=== PATIENT | female | born 1965 | race African-American/Black ===

== ENCOUNTER 2020-05-21 08:28 | Outpatient (CLI) | payer OTHER ==
--- NOTE | 2020-05-21 09:06 | RAD ---
Exam: Chest one view HISTORY:Hypertension Comparison: 11/19/2008 FINDINGS: Cardiac silhouette: Normal Aorta: Unremarkable Pulmonary vessels: Normal Costophrenic angles: Clear LUNGS: No masses or consolidation. Pneumothorax: None Osseous abnormalities: None IMPRESSION: No acute cardiopulmonary process.
--- NOTE | 2020-05-21 09:09 | MMO ---
Bilateral MAMMO Bilat Screen [facility]. CLINICAL HISTORY: Patient is 54 years old and is seen for screening. The patient has no family history of breast cancer. The patient has no personal history of cancer. VIEWS: The views performed were: bilateral craniocaudal with tomosynthesis and bilateral mediolateral oblique with tomosynthesis. This study has been interpreted with the assistance of computer-aided detection. MAMMOGRAM FINDINGS: There are scattered fibroglandular densities. There are intramammary lymph nodes seen in both breasts. There are no suspicious masses, suspicious calcifications, or areas of architectural distortion. IMPRESSION: THERE IS NO MAMMOGRAPHIC EVIDENCE OF MALIGNANCY. A ROUTINE FOLLOW-UP MAMMOGRAM IN 1 YEAR IS RECOMMENDED. THE RESULTS OF THIS EXAM WERE SENT TO THE PATIENT. ACR BI-RADS Category 2 - Benign finding MAMMOGRAPHY NOTE: 1. A negative mammogram report should not delay a biopsy if a dominant of clinically suspicious mass is present. 2. Approximately 10% to 15% of breast cancers are not detected by mammography. 3. Adenosis and dense breasts may obscure an underlying neoplasm. Reported by: GARY ROUSE MD Electonically Signed: [id number]
--- NOTE | 2020-05-21 09:32 | BD ---
DEXA SCAN: Date: 05/21/2020 INDICATION: Osteoporosis screening. COMPARISON: None. FINDINGS/IMPRESSION: Lumbar Spine: BMD (g/cm2) L1 1.335 T-Score: 3.1 Z-Score: 4.1 L2 1.340 T-Score: 2.8 Z-Score: 3.9 L3 1.365 T-Score: 2.6 Z-Score: 3.7 L4 1.355 T-Score: 2.7 Z-Score: 3.9 L1-L4 1.349 T-Score: 2.7 Z-Score: 3.9 Left Femoral Neck: 1.217 T-Score: 3.3 Z-Score: 4.4 Left Total Hip: 1.405 T-Score: 3.8 Z-Score: 4.5 Based on WHO criteria, the patient's bone mineral density is normal. The patient is at low risk for fracture. POS: BH
--- NOTE | 2020-05-21 09:39 | RAD ---
3 VIEWS PARANASAL SINUSES: Date: 05/21/2020 INDICATION: History of tension-type headache. COMPARISON: None. FINDINGS: Paranasal sinuses are clear. No air fluid level is evident. No acute fracture is evident. IMPRESSION: No acute abnormality. POS: BH
== END 2020-05-21 08:29 | disposition home or self-care (01) ==
LOC: BICMAMMO 08:28
PROVIDERS: ATTEND Family Medicine
DX: Z12.31 Encounter for screening mammogram for malignant neoplasm of breast (principal); Z13.820 Encounter for screening for osteoporosis; I10 Essential (primary) hypertension; G44.209 Tension-type headache, unspecified, not intractable
CPT/HCPCS: 70220; 71045; 77063; 77067; 77080

== ENCOUNTER 2021-11-12 04:24 | Emergency (ER) | payer OTHER ==
[2021-11-12] MEDS ORDERED: Acetaminophen 500 MG TAB ONE (05:23)
[2021-11-12] MEDS ORDERED: Ondansetron ODT 4 MG TAB ONE (05:23)
== END 2021-11-12 06:13 | disposition home or self-care (01) ==
LOC: ERS 04:24
DX: U07.1 COVID-19 (principal)
CPT/HCPCS: 99284; Q0162

== ENCOUNTER 2021-11-16 20:53 | Emergency (ER) | payer OTHER ==
[2021-11-16 21:52] LABS: #Lymphocytes 2.2 thou/uL (1.20-3.40); #Monocytes 0.5 thou/uL (0.11-0.59); #Neutrophils 3.6 thou/uL (1.40-6.50); %Basophils 0.5 % (0.0-1.0); %Eosinophils 0.4 % (0.0-10.0); %Lymphocytes 34.7 % (21.0-51.0); %Monocytes 8.1 % (0.0-10.0); %Neutrophils 56.3 % (42.0-75.0); Hemoglobin 13.1 g/dL (12.0-16.0); Mean Corpuscular HGB CONC 35.5 g/dL (32.0-36.0); Mean Corpuscular Hemoglobin 30.3 pg (27.0-31.0); Mean Corpuscular Volume 85.5 fL (78.0-98.0); Mean Platelet Volume 7.7 fL (7.4-10.4); Platelet Count 363 thou/uL (130-400); RBC Distribution Width 10.9 % (11.5-14.5); White Blood Cell (WBC) Count 6.3 thou/uL (4.8-10.8)
[2021-11-16 22:10] LABS: ALT (SGPT) 31 U/L (8-55); AST (SGOT) 31 U/L (5-34); Albumin 4.2 g/dL (3.5-5.0); Alkaline Phosphatase 57 U/L (40-110); Anion Gap 16 mmol/L (10-20); BUN (Urea Nitrogen) 9 mg/dL (9.8-20.1); Calc. Creatinine Clearance 0 mL/min (70-130); Calcium 9.6 mg/dL (7.8-10.44); Carbon Dioxide 21 mmol/L (22-29); Chloride 102 mmol/L (98-107); Globulin 3.1 g/dL (2.4-3.5); Glucose 119 mg/dL (70-105); Potassium 3.3 mmol/L (3.5-5.1); Protein, Total 7.3 g/dL (6.0-8.3); Sodium 136 mmol/L (136-145)
[2021-11-17 00:08] LABS: Magnesium 1.8 mg/dL (1.6-2.6)
== END 2021-11-17 00:43 | disposition home or self-care (01) ==
LOC: ERS 20:53
DX: F41.9 Anxiety disorder, unspecified (principal); Z79.82 Long term (current) use of aspirin; Z79.899 Other long term (current) drug therapy
CPT/HCPCS: 36415; 71045; 80053; 83735; 84484; 85025; 85379; 93005

== ENCOUNTER 2021-12-21 10:47 | Emergency (ER) | payer OTHER | END 2021-12-21 13:09 | disposition home or self-care (01) | LOC: ERS 10:47 | DX: M25.461 Effusion, right knee (principal); M25.561 Pain in right knee; R60.0 Localized edema; I10 Essential (primary) hypertension; Z79.899 Other long term (current) drug therapy; Z79.82 Long term (current) use of aspirin ==

== ENCOUNTER 2022-01-23 20:50 | Emergency (ER) | payer OTHER ==
[2022-01-23 22:05] LABS: #Basophils 0.1 thou/uL (0.0-0.2); #Eosinphils 0.1 thou/uL (0.0-0.7); #Monocytes 0.6 thou/uL (0.11-0.59); #Neutrophils 7.5 thou/uL (1.40-6.50); %Basophils 0.7 % (0.0-1.0); %Eosinophils 0.8 % (0.0-10.0); %Lymphocytes 19.9 % (21.0-51.0); %Monocytes 5.6 % (0.0-10.0); Hemoglobin 13.7 g/dL (12.0-16.0); Mean Corpuscular HGB CONC 34.1 g/dL (32.0-36.0); Platelet Count 277 thou/uL (130-400); RBC Distribution Width 11.5 % (11.5-14.5); Red Blood Cell (RBC) Count 4.55 mill/uL (4.20-5.40); White Blood Cell (WBC) Count 10.3 thou/uL (4.8-10.8)
[2022-01-23 22:25] LABS: ALT (SGPT) 24 U/L (8-55); AST (SGOT) 26 U/L (5-34); Albumin 4.6 g/dL (3.5-5.0); Alkaline Phosphatase 84 U/L (40-110); Anion Gap 16 mmol/L (10-20); BUN (Urea Nitrogen) 12 mg/dL (9.8-20.1); Bilirubin, Total 0.6 mg/dL (0.2-1.2); Calc. Creatinine Clearance 0 mL/min (70-130); Calcium 9.7 mg/dL (7.8-10.44); Carbon Dioxide 27 mmol/L (22-29); Chloride 100 mmol/L (98-107); Globulin 3.6 g/dL (2.4-3.5); Glucose 138 mg/dL (70-105); Lipase 36 U/L (8-78); Potassium 3.8 mmol/L (3.5-5.1); Protein, Total 8.2 g/dL (6.0-8.3); Sodium 139 mmol/L (136-145)
[2022-01-23] MEDS ORDERED: Lidocaine Viscous Sol 2% 15 ml UD Cup ONE (23:08)
[2022-01-23] MEDS ORDERED: Nitroglycerin 2% Ointment 1 INCH/1 GM Packet ONE (23:08)
[2022-01-23] MEDS ORDERED: Mag-Al 1200 mg/1200 mg/30 ML UDCUP ONE (23:08)
[2022-01-23] MEDS ORDERED: Aspirin Chewable 81 MG TAB ONE (23:08)
[2022-01-24] LABS: Troponin I Less than 0.010 ng/mL (< 0.028)
== END 2022-01-24 00:31 | disposition home or self-care (01) ==
LOC: ERS 20:50
DX: R07.89 Other chest pain (principal); I10 Essential (primary) hypertension
CPT/HCPCS: 36415; 71045; 80053; 83690; 84484; 85025; 93005; 94760

== ENCOUNTER 2022-01-26 18:51 | Inpatient (IN) | payer OTHER ==
[2022-01-26 20:19] LABS: #Eosinphils 0.1 thou/uL (0.0-0.7); #Lymphocytes 1.5 thou/uL (1.20-3.40); #Monocytes 0.3 thou/uL (0.11-0.59); #Neutrophils 3.7 thou/uL (1.40-6.50); %Basophils 0.9 % (0.0-1.0); %Eosinophils 1.2 % (0.0-10.0); %Lymphocytes 26.6 % (21.0-51.0); %Monocytes 6.1 % (0.0-10.0); %Neutrophils 65.3 % (42.0-75.0); Hemoglobin 13.5 g/dL (12.0-16.0); Mean Corpuscular HGB CONC 34.6 g/dL (32.0-36.0); Mean Corpuscular Hemoglobin 30.8 pg (27.0-31.0); Platelet Count 303 thou/uL (130-400); RBC Distribution Width 11.7 % (11.5-14.5); Red Blood Cell (RBC) Count 4.37 mill/uL (4.20-5.40); White Blood Cell (WBC) Count 5.6 thou/uL (4.8-10.8)
[2022-01-26 20:39] LABS: ALT (SGPT) 23 U/L (8-55); AST (SGOT) 25 U/L (5-34); Albumin 4.5 g/dL (3.5-5.0); Alkaline Phosphatase 88 U/L (40-110); Anion Gap 15 mmol/L (10-20); BUN (Urea Nitrogen) 11 mg/dL (9.8-20.1); Bilirubin, Total 0.7 mg/dL (0.2-1.2); Calc. Creatinine Clearance 0 mL/min (70-130); Calcium 9.8 mg/dL (7.8-10.44); Carbon Dioxide 25 mmol/L (22-29); Chloride 105 mmol/L (98-107); Globulin 3.8 g/dL (2.4-3.5); Glucose 112 mg/dL (70-105); Protein, Total 8.3 g/dL (6.0-8.3); Sodium 141 mmol/L (136-145)
[2022-01-26 21:17] LABS: INR-International Normal Ratio 0.9; Prothrombin Time 11.7 sec (12.0-14.7)
[2022-01-26] MEDS ORDERED: Acetaminophen 500 MG TAB ONE (21:49)
[2022-01-26] MEDS ORDERED: Aspirin Chewable 81 MG TAB ONE (21:49)
[2022-01-26] MEDS ORDERED: Senokot S 8.6-50 MG TAB PO PRN (22:33)
[2022-01-26] MEDS ORDERED: HYDROcodone/Acetaminophen 5/325 mg Tablet PO PRN (22:33)
[2022-01-26] MEDS ORDERED: Acetaminophen 325 MG TAB PO PRN (22:33)
[2022-01-26] MEDS ORDERED: HYDROcodone/Acetaminophen 7.5/325 mg Tablet PO PRN (22:33)
[2022-01-26] MEDS ORDERED: Ondansetron PF 4 MG/2 ML Vial IVP PRN (22:33)
[2022-01-26] MEDS ORDERED: Melatonin 3 MG TAB PO PRN (22:38)
[2022-01-26 23:56] LABS: Troponin I Less than 0.010 ng/mL (< 0.028)
[2022-01-26] MEDS ORDERED: Atorvastatin Calcium 40 MG TAB PO SCH (23:59)
[2022-01-27 00:35] VITALS: BMI 28.8
[2022-01-27 02:41] LABS: Troponin I Less than 0.010 ng/mL (< 0.028)
[2022-01-27] MEDS ORDERED: hydrALAZINE 20 MG/ML VIAL SLOW IVP PRN (03:05)
[2022-01-27] MEDS ORDERED: Pantoprazole 40 MG VIAL IVP SCH ×2 (05:00→21:00)
[2022-01-27 05:02] LABS: #Eosinphils 0.1 thou/uL (0.0-0.7); #Lymphocytes 3.4 thou/uL (1.20-3.40); #Monocytes 0.6 thou/uL (0.11-0.59); %Basophils 0.5 % (0.0-1.0); %Eosinophils 1.4 % (0.0-10.0); %Monocytes 7.2 % (0.0-10.0); Mean Corpuscular HGB CONC 34.3 g/dL (32.0-36.0); Mean Corpuscular Hemoglobin 30.7 pg (27.0-31.0); Mean Corpuscular Volume 89.3 fL (78.0-98.0); Mean Platelet Volume 8.4 fL (7.4-10.4); Platelet Count 290 thou/uL (130-400); RBC Distribution Width 11.6 % (11.5-14.5); Red Blood Cell (RBC) Count 4.57 mill/uL (4.20-5.40); White Blood Cell (WBC) Count 8.2 thou/uL (4.8-10.8)
[2022-01-27 05:11] LABS: Hemoglobin A1c 5.8 % (4.0-6.0)
[2022-01-27 05:19] LABS: ALT (SGPT) 25 U/L (8-55); AST (SGOT) 24 U/L (5-34); Albumin 4.5 g/dL (3.5-5.0); Alkaline Phosphatase 77 U/L (40-110); Anion Gap 14 mmol/L (10-20); BUN (Urea Nitrogen) 11 mg/dL (9.8-20.1); Calc. Creatinine Clearance 81 mL/min (70-130); Calcium 9.5 mg/dL (7.8-10.44); Carbon Dioxide 23 mmol/L (22-29); Cardiac Risk 4.7 (Less than 4.5); Chloride 103 mmol/L (98-107); Cholesterol 256 mg/dl (< 200 Desired); Globulin 3.3 g/dL (2.4-3.5); Glucose 120 mg/dL (70-105); HDL Cholesterol 54 mg/dL (>60 Neg Risk); LDL Cholesterol, Calculated 157 mg/dL; Potassium 3.4 mmol/L (3.5-5.1); Protein, Total 7.8 g/dL (6.0-8.3); Sodium 137 mmol/L (136-145); Triglycerides 226 mg/dL (Less than 150)
[2022-01-27] MEDS ORDERED: Lorazepam 2 MG/ML VIAL SLOW IVP SCH (07:21)
[2022-01-27] MEDS: cloNIDine 0.1 MG TAB PO SCH ×2 (08:00→19:50)
[2022-01-27] MEDS: Aspirin Chewable 81 MG TAB PO SCH (08:00)
[2022-01-27] MEDS: Atenolol 50 MG TAB PO SCH (08:00)
[2022-01-27] MEDS: Triamterene/Hydrochlorothiazide 37.5 mg/25 mg Tablet PO SCH (08:01)
[2022-01-27] MEDS: Enoxaparin Sodium 40 MG/0.4 ML SYRINGE SC SCH (08:03)
[2022-01-27 09:28] LABS: INR-International Normal Ratio 0.9; PTT 27.6 sec (22.9-36.1); Prothrombin Time 12.4 sec (12.0-14.7)
[2022-01-27 09:29] LABS: D-Dimer Test 0.29 *mcg/mL (0.27-0.43)
[2022-01-27 11:56] LABS: SARS-CoV-2 PCR by NAA Not Detected (NotDetected)
[2022-01-27] MEDS: Labetalol HCl 100 MG/20 ML VIAL SLOW IVP PRN ×2 (15:18→19:51)
[2022-01-27] MEDS ORDERED: Atorvastatin Calcium 40 MG TAB PO SCH (21:00)
[2022-01-28 07:08] VITALS: TEMP 98
[2022-01-28] MEDS ORDERED: Pantoprazole 40 MG VIAL IVP SCH (09:00)
[2022-01-28] MEDS: Triamterene/Hydrochlorothiazide 37.5 mg/25 mg Tablet PO SCH (09:51)
[2022-01-28] MEDS: cloNIDine 0.1 MG TAB PO SCH (09:51)
[2022-01-28] MEDS: Aspirin Chewable 81 MG TAB PO SCH (09:51)
[2022-01-28] MEDS: Atenolol 50 MG TAB PO SCH (09:51)
[2022-01-28] MEDS: Enoxaparin Sodium 40 MG/0.4 ML SYRINGE SC SCH (09:51)
[2022-01-28 11:52] VITALS: BP 169/73
[2022-01-31 13:24] LABS: Protein C Activity 174 % (78-152)
[2022-01-31 13:25] LABS: Factor VIII Test 223.3 % ACTIVE (56-157)
[2022-01-31 13:26] LABS: HEX PHOS LA Tube 1 38.1 SEC; HEX PHOS LA Tube 2 38.3 SEC
[2022-02-04 15:25] LABS: ANA Symphony (Qualitative) Negative (Negative); ANA Symphony (Quantitative) 0.2 Ratio (< 0.7 Negative); Cardiolipin IgA Ab 3.1 APL-U/mL (<14 Negative); Cardiolipin IgG Ab 0.5 GPL-U/mL (<10 Negative); Cardiolipin IgM Ab Less than 0.8 MPL-U/mL (<10 Negative); EliA APS New Method **** NEW METHOD ****; Rheumatoid Factor IgA Antibody 3.2 IU/mL (<14 Negative); Rheumatoid Factor IgM Antibody 1.1 IU/mL (<3.5 Negative); dsDNA IgG Antibody 1.7 IU/mL (<10 Negative)
[2022-02-13 17:38] LABS: Activated Protein C Resistance 2.8 ratio (.)
== END 2022-01-28 12:50 | disposition home or self-care (01) | DRG 305 ==
LOC: ERS 18:51 → 2SW 22:23 → OBSVTOIN 01-27 10:00
PROVIDERS: ADMIT Internal Medicine; ATTEND Internal Medicine
DX: I16.0 Hypertensive urgency (principal); Z20.822 Contact with and (suspected) exposure to COVID-19; E78.5 Hyperlipidemia, unspecified; I10 Essential (primary) hypertension; M25.461 Effusion, right knee; Z91.14 Patient's other noncompliance with medication regimen; Q75.8 Other specified congenital malformations of skull and face bones; Z79.899 Other long term (current) drug therapy; Z79.82 Long term (current) use of aspirin; Z90.710 Acquired absence of both cervix and uterus; Z83.2 Family history of diseases of the blood and blood-forming organs and certain disorders involving the immune mechanism
CPT/HCPCS: 36415; 70496; 70498; 70544; 70551; 71045; 80053; 80061; 83036; 83090; 83520; 84443; 84484; 85025; 85240; 85300; 85303; 85305; 85307; 85379; 85598; 85610; 85730; 86038; 86147; 86200; 86225; 93005; 96374; 96375; C9113; G0378; J0360; J2405; U0003; U0005

== ENCOUNTER 2022-02-04 03:53 | Inpatient (IN) | payer OTHER ==
[2022-02-04] MEDS ORDERED: Nitrazine Tape 1 ROLL ONE ×2 (04:14→04:16)
[2022-02-04] MEDS ORDERED: Nitroglycerin 2% Ointment 1 INCH/1 GM Packet ONE (04:14)
[2022-02-04] MEDS ORDERED: Aspirin Chewable 81 MG TAB ONE (04:15)
[2022-02-04 04:24] LABS: #Lymphocytes 1.9 thou/uL (1.20-3.40); #Monocytes 0.5 thou/uL (0.11-0.59); #Neutrophils 4.9 thou/uL (1.40-6.50); %Basophils 0.5 % (0.0-1.0); %Eosinophils 0.5 % (0.0-10.0); %Lymphocytes 25.3 % (21.0-51.0); %Monocytes 6.3 % (0.0-10.0); %Neutrophils 67.3 % (42.0-75.0); Mean Corpuscular HGB CONC 35.2 g/dL (32.0-36.0); Mean Corpuscular Hemoglobin 30.8 pg (27.0-31.0); Mean Corpuscular Volume 87.4 fL (78.0-98.0); Mean Platelet Volume 7.8 fL (7.4-10.4); Platelet Count 325 thou/uL (130-400); RBC Distribution Width 11.3 % (11.5-14.5); Red Blood Cell (RBC) Count 4.55 mill/uL (4.20-5.40); White Blood Cell (WBC) Count 7.3 thou/uL (4.8-10.8)
[2022-02-04 04:43] LABS: ALT (SGPT) 27 U/L (8-55); AST (SGOT) 30 U/L (5-34); Albumin 4.9 g/dL (3.5-5.0); Alkaline Phosphatase 104 U/L (40-110); Anion Gap 18 mmol/L (10-20); BUN (Urea Nitrogen) 15 mg/dL (9.8-20.1); Bilirubin, Total 1.3 mg/dL (0.2-1.2); CK (CPK) 253 U/L (29-168); Calc. Creatinine Clearance 0 mL/min (70-130); Calcium 9.9 mg/dL (7.8-10.44); Carbon Dioxide 26 mmol/L (22-29); Chloride 97 mmol/L (98-107); Globulin 3.4 g/dL (2.4-3.5); Glucose 116 mg/dL (70-105); Lipase 45 U/L (8-78); Potassium 3.1 mmol/L (3.5-5.1); Protein, Total 8.3 g/dL (6.0-8.3); Sodium 138 mmol/L (136-145)
[2022-02-04] MEDS ORDERED: Enoxaparin Sodium 80 MG/0.8 ML SYRINGE ONE (05:45)
[2022-02-04] MEDS ORDERED: Ondansetron PF 4 MG/2 ML Vial IVP PRN (06:41)
[2022-02-04] MEDS ORDERED: Ondansetron ODT 4 MG TAB PO PRN (06:41)
[2022-02-04 07:13] VITALS: BMI 27.6
[2022-02-04] MEDS ORDERED: Potassium Chloride 20 MEQ TAB PO SCH (07:45)
[2022-02-04] MEDS ORDERED: Acetaminophen 650 MG Suppository PR PRN (07:58)
[2022-02-04] MEDS ORDERED: Acetaminophen 325 MG TAB PO PRN (07:58)
[2022-02-04] MEDS ORDERED: Nitroglycerin 0.4 MG TAB (25 Tab Bottle) SL PRN (08:00)
[2022-02-04] MEDS ORDERED: hydrALAZINE 20 MG/ML VIAL SLOW IVP PRN (08:01)
[2022-02-04] MEDS: Aspirin Chewable 81 MG TAB PO SCH (08:24)
[2022-02-04] MEDS: Triamterene/Hydrochlorothiazide 37.5 mg/25 mg Tablet PO SCH (08:25)
[2022-02-04] MEDS: cloNIDine 0.1 MG TAB PO SCH ×2 (08:25→20:07)
[2022-02-04] MEDS ORDERED: Aspirin 325 MG TAB PO SCH (09:00)
[2022-02-04] MEDS ORDERED: ADENOSINE 60 MG/20 ML VIAL ONE (10:08)
[2022-02-04 11:51] LABS: Troponin I Less than 0.010 ng/mL (< 0.028)
[2022-02-04] MEDS ORDERED: Amlodipine 5 MG TAB PO SCH (16:30)
[2022-02-04 17:25] LABS: SARS-CoV-2 PCR by NAA Not Detected (NotDetected)
[2022-02-04] MEDS: Atorvastatin Calcium 40 MG TAB PO SCH (20:07)
[2022-02-05 05:34] LABS: Anion Gap 16 mmol/L (10-20); BUN (Urea Nitrogen) 9 mg/dL (9.8-20.1); Calc. Creatinine Clearance 80 mL/min (70-130); Calcium 9.8 mg/dL (7.8-10.44); Carbon Dioxide 23 mmol/L (22-29); Chloride 105 mmol/L (98-107); Glucose 99 mg/dL (70-105); Potassium 3.6 mmol/L (3.5-5.1); Sodium 140 mmol/L (136-145)
[2022-02-05 05:41] LABS: #Basophils 0.1 thou/uL (0.0-0.2); #Lymphocytes 1.8 thou/uL (1.20-3.40); #Monocytes 0.3 thou/uL (0.11-0.59); #Neutrophils 3.1 thou/uL (1.40-6.50); %Basophils 1.7 % (0.0-1.0); %Eosinophils 0.7 % (0.0-10.0); %Lymphocytes 33.6 % (21.0-51.0); %Monocytes 5.1 % (0.0-10.0); %Neutrophils 58.9 % (42.0-75.0); Hemoglobin 14.4 g/dL (12.0-16.0); Mean Corpuscular HGB CONC 33.9 g/dL (32.0-36.0); Mean Corpuscular Hemoglobin 29.9 pg (27.0-31.0); Mean Corpuscular Volume 88.3 fL (78.0-98.0); Mean Platelet Volume 7.7 fL (7.4-10.4); Platelet Count 296 thou/uL (130-400); RBC Distribution Width 11.5 % (11.5-14.5); Red Blood Cell (RBC) Count 4.81 mill/uL (4.20-5.40); White Blood Cell (WBC) Count 5.2 thou/uL (4.8-10.8)
[2022-02-05 07:55] LABS: Cardiac Risk 3.5 (Less than 4.5)
[2022-02-05] MEDS: NIFEdipine XL 30 MG TAB PO SCH (08:07)
[2022-02-05] MEDS: Triamterene/Hydrochlorothiazide 37.5 mg/25 mg Tablet PO SCH (08:08)
[2022-02-05] MEDS: Aspirin Chewable 81 MG TAB PO SCH (08:08)
[2022-02-05] MEDS: cloNIDine 0.1 MG TAB PO SCH ×2 (08:08→21:03)
[2022-02-05] MEDS: Atenolol 50 MG TAB PO SCH (08:12)
[2022-02-05] MEDS ORDERED: Communication Order-Pharmacy FS SCH (14:45)
[2022-02-05] MEDS: Atorvastatin Calcium 40 MG TAB PO SCH (21:03)
[2022-02-06 04:55] LABS: #Eosinphils 0.1 thou/uL (0.0-0.7); #Lymphocytes 2.9 thou/uL (1.20-3.40); #Monocytes 0.5 thou/uL (0.11-0.59); #Neutrophils 4.5 thou/uL (1.40-6.50); %Basophils 0.2 % (0.0-1.0); %Eosinophils 0.9 % (0.0-10.0); %Lymphocytes 36.1 % (21.0-51.0); %Monocytes 6.7 % (0.0-10.0); %Neutrophils 56.2 % (42.0-75.0); Hemoglobin 14.7 g/dL (12.0-16.0); Mean Corpuscular HGB CONC 35.4 g/dL (32.0-36.0); Mean Corpuscular Hemoglobin 31.7 pg (27.0-31.0); Mean Corpuscular Volume 89.3 fL (78.0-98.0); Mean Platelet Volume 7.6 fL (7.4-10.4); Platelet Count 287 thou/uL (130-400); RBC Distribution Width 11.4 % (11.5-14.5); Red Blood Cell (RBC) Count 4.64 mill/uL (4.20-5.40)
[2022-02-06 05:21] LABS: BUN (Urea Nitrogen) 11 mg/dL (9.8-20.1); Calc. Creatinine Clearance 82 mL/min (70-130); Calcium 9.9 mg/dL (7.8-10.44); Carbon Dioxide 23 mmol/L (22-29); Glucose 99 mg/dL (70-105)
[2022-02-06 05:30] LABS: Anion Gap 16 mmol/L (10-20); Chloride 105 mmol/L (98-107); Potassium 3.9 mmol/L (3.5-5.1); Sodium 139 mmol/L (136-145)
[2022-02-06] MEDS ORDERED: Sodium Chloride 0.9% 1,000 ML IV SCH ×2 (06:00→07:45)
[2022-02-06] MEDS: Atenolol 50 MG TAB PO SCH (06:01)
[2022-02-06] MEDS: NIFEdipine XL 30 MG TAB PO SCH (06:01)
[2022-02-06] MEDS: cloNIDine 0.1 MG TAB PO SCH (06:01)
[2022-02-06] MEDS: Aspirin Chewable 81 MG TAB PO SCH (06:02)
[2022-02-06] MEDS ORDERED: Adenosine 6 MG/2 ML VIAL ONE (06:28)
[2022-02-06] MEDS ORDERED: Verapamil 5 MG/2 ML VIAL ONE (06:28)
[2022-02-06] MEDS ORDERED: Nitroglycerin 100MG/250ML BOT 0 ML ONE (06:28)
[2022-02-06] MEDS ORDERED: Heparin 10,000 UNITS/ 10 ML VIAL ONE (06:28)
[2022-02-06] MEDS ORDERED: Lidocaine 1% (PF) 30 ML VIAL ONE (06:29)
[2022-02-06] MEDS ORDERED: Fentanyl 100 MCG/2 ML VIAL ONE (07:13)
[2022-02-06] MEDS ORDERED: Acetaminophen/Codeine 30-300mg Tablet PO PRN ×2 (07:42)
[2022-02-06] MEDS ORDERED: Sodium Chloride 0.9% 200 ML IV PRN (07:42)
[2022-02-06] MEDS ORDERED: Nitroglycerin 0.4 MG TAB (25 Tab Bottle) SL PRN (07:42)
[2022-02-06] MEDS: Triamterene/Hydrochlorothiazide 37.5 mg/25 mg Tablet PO SCH (09:24)
[2022-02-06] MEDS ORDERED: Iopamidol 370 76% 100 ML VIAL ONE (10:15)
[2022-02-06 17:11] VITALS: BP 145/74; TEMP 97.5
== END 2022-02-06 17:27 | disposition home or self-care (01) | DRG 392 ==
LOC: ERS 03:53 → 2SW 05:57 → OBSVTOIN 11:41
PROVIDERS: ADMIT Student in an Organized Health Care Education/Training Program; ATTEND Internal Medicine
PROC: 4A023N7 Measurement of Cardiac Sampling and Pressure, Left Heart, Percutaneous Approach (ICD-10-PCS; principal; 2022-02-06)
PROC: B2151ZZ Fluoroscopy of Left Heart using Low Osmolar Contrast (ICD-10-PCS; 2022-02-06)
PROC: B2111ZZ Fluoroscopy of Multiple Coronary Arteries using Low Osmolar Contrast (ICD-10-PCS; 2022-02-06)
DX: K21.9 Gastro-esophageal reflux disease without esophagitis (principal); I24.8 Other forms of acute ischemic heart disease; I16.0 Hypertensive urgency; F41.9 Anxiety disorder, unspecified; Z20.822 Contact with and (suspected) exposure to COVID-19; I10 Essential (primary) hypertension; E78.5 Hyperlipidemia, unspecified; E87.6 Hypokalemia; Z79.82 Long term (current) use of aspirin; Z79.899 Other long term (current) drug therapy
CPT/HCPCS: 36415; 71045; 78452; 80048; 80053; 80061; 82550; 83036; 83690; 83880; 84484; 85025; 93005; 93017; 93458; 96372; 96374; A9500; G0378; J0153; J1644; J1650; J2001; J3010; J7050; Q9967; U0003; U0005